=== PATIENT | female | born 1975 | race Caucasian/White ===

== ENCOUNTER 2017-12-13 05:52 | Emergency (ER) | payer MEDICARE ==
[2017-12-13] MEDS ORDERED: ASPIRIN 81 MG TABLET, CHEWABLE PO ONE (07:10)
--- NOTE | 2017-12-13 07:10 | ER Document Report ---
ED General - General Chief Complaint: Shortness Of Breath Stated Complaint: SHORTNESS OF BREATH Time Seen by Provider: 12/13/17 07:09 Mode of Arrival: Ambulatory Information source: Patient Notes: 42 yo female smoker, DM2, hypertensive, hyperlipedemic, with stong FHX CAD, [place] at 50's c/o shortness of breath, fatique, nausea, chest tightness intermittently for a month. Woke her up in middle of the night. No PCP. Never had cardiac evaluation. No hormones. No recent illness, cough or fever. Heartscore is 4 TRAVEL OUTSIDE OF THE [place] IN LAST 30 DAYS: No - Related Data Allergies/Adverse Reactions: codeine Allergy (Verified 12/13/17 06:03) Iodinated Contrast- Oral and IV Dye Allergy (Verified 12/13/17 06:03) Sulfa (Sulfonamide Antibiotics) Allergy (Verified 12/13/17 06:03) Past Medical History - General Information source: Patient - Social History Smoking Status: Current Every Day Smoker Frequency of alcohol use: None Drug Abuse: None Lives with: Spouse/Significant other Family History: CAD Patient has suicidal ideation: No Patient has homicidal ideation: No - Past Medical History Cardiac Medical History: Reports: Hx Hypercholesterolemia, Hx Hypertension Denies: Hx Heart Attack Pulmonary Medical History: Reports: None Neurological Medical History: Reports: Hx Seizures Endocrine Medical History: Reports: Hx Diabetes Mellitus Type 2 Renal/ Medical History: Denies: Hx Peritoneal Dialysis Past Surgical History: Reports: Hx Cholecystectomy, Hx Orthopedic Surgery - R femur repair, discectomy with fusion of C4-C7 Review of Systems - Review of Systems Constitutional: See HPI EENT: No symptoms reported Cardiovascular: See HPI Respiratory: See HPI Gastrointestinal: No symptoms reported Genitourinary: No symptoms reported Female Genitourinary: No symptoms reported Musculoskeletal: No symptoms reported Skin: No symptoms reported Hematologic/Lymphatic: No symptoms reported Neurological/Psychological: No symptoms reported Physical Exam - Vital signs Vitals: Temp Pulse Resp BP Pulse Ox 97.4 F 80 17 130/81 H 100 12/13/17 05:59 12/13/17 05:59 12/13/17 05:59 12/13/17 05:59 12/13/17 05:59 Interpretation: Normal - General General appearance: Appears well, Alert In distress: None - HEENT Head: Normocephalic, Atraumatic Eyes: Normal Conjunctiva: Normal Pupils: PERRL Pharynx: Normal Neck: Supple. No: Lymphadenopathy - Respiratory Respiratory status: No respiratory distress Chest status: Nontender Breath sounds: Normal Chest palpation: Normal - Cardiovascular Rhythm: Regular Heart sounds: Normal auscultation Murmur: No - Abdominal Inspection: Normal Distension: No distension Bowel sounds: Normal Tenderness: Nontender Organomegaly: No organomegaly - Back Back: Normal, Nontender. No: CVA tenderness - Extremities General upper extremity: Normal inspection, Nontender, Normal color, Normal ROM , Normal temperature General lower extremity: Normal inspection, Nontender, Normal color, Normal ROM , Normal temperature, Normal weight bearing. No: Arnie's sign - Neurological Neuro grossly intact: Yes Cognition: Normal Orientation: AAOx4 [place] Coma Scale Eye Opening: Spontaneous [place] Coma Scale Verbal: Oriented [place] Coma Scale Motor: Obeys Commands [place] Coma Scale Total: 15 Speech: Normal Motor strength normal: LUE, RUE, LLE, RLE Sensory: Normal - Psychological Associated symptoms: Normal affect, Normal mood - Skin Skin Temperature: Warm Skin Moisture: Dry Skin Color: Normal Skin irregularity: negative: Rash Course - Re-evaluation Re-evalutation: 12/13/17 09:06 EKG is normal sinus rhythm with no acute change, chest x-ray is negative, patient's heart score is 4. I am concerned about this group of symptoms of fatigue chest pressure shortness of breath dizziness and nausea. Dr. richard hospitalist will admit to observation telemetry bed 12/13/17 10:01 The hospitalist is in the room with the patient and she had talked with her significant other Maddy and has decided that she wants to sign out AGAINST MEDICAL ADVICE. I advised her of her risks of undiagnosed coronary artery disease, sudden . She is alert and oriented and understands the risks she does believe that she needs to have outpatient evaluation but does not want to be admitted for serial enzymes. Told her I would give her discharge instructions with a content curator that she can follow-up with. I will also advise her to keep her glucose under control, stop smoking, take a baby aspirin daily, and also told her that she is free to return to the emergency room for any change in symptoms or if she changes her mind for the workup that we are here with an open door policy for her to return. - Vital Signs Vital signs: Temp Pulse Resp BP Pulse Ox 98.1 F 80 13 116/82 100 12/13/17 10:50 12/13/17 05:59 12/13/17 10:01 12/13/17 10:01 12/13/17 10:01 - Laboratory Result Diagrams: 12/13/17 07:41 12/13/17 07:41 Laboratory results interpreted by me: 12/13/17 12/13/17 07:41 07:41 WBC 11.2 H RBC 5.86 H MCV 72 L MCH 23.1 L RDW 17.9 H Glucose 204 H Creatine Kinase 27 L - EKG Interpretation by Me EKG shows normal: Sinus rhythm Rate: Normal Rhythm: NSR Additional EKG results interpreted by me: 12/13/17 08:57 AT 404. QTC 446, dr jackson evaluated EKG no old to compare Discharge - Discharge Clinical Impression: Chest pain, Palpitations Hypothyroid Qualifiers: Hypothyroidism type: unspecified Qualified Code(s): E03.9 - Hypothyroidism, unspecified Fatigue Qualifiers: Fatigue type: unspecified Qualified Code(s): R53.83 - Other fatigue Condition: Stable Disposition: AGAINST MEDICAL ADVICE Instructions: Aspirin (Cardiac) ([facility]), Chest Pain of Unclear Cause ([facility]), Diabetes ([facility]), Palpitations (Irregular or Rapid Heartrate) ([facility]), Stop Smoking ([facility]) Additional Instructions: Stop smoking Return to the emergency room immediately for worsening of symptoms or if you change your mind about being admitted for serial enzymes and cardiac evaluation One baby aspirin daily 81 mg Keep your diabetes under control with her insulin Referral to internal medicine Referral to content curator please call and schedule an appointment with Dr. Encarnacion Referrals: TIM ENCARNACION MD [ACTIVE STAFF] - Follow up tomorrow RUBA MIRZA MD [ACTIVE STAFF] - Follow up tomorrow
--- NOTE | 2017-12-13 07:32 | RADIOLOGY REPORT (SQ) ---
EXAM DESCRIPTION: XR CHEST 1 VIEW COMPLETED DATE/TME: 12/13/2017 07:10 CLINICAL HISTORY: chest pain COMPARISON: None. FINDINGS: Single frontal view of the chest. Elevation the right hemidiaphragm. The cardiomediastinal silhouette has normal size and contour. No consolidation, pneumothorax, or pleural effusion. Anterior fixation of the cervical spine partially visualized. No acute osseous abnormalities. Leads overlie the chest. Upper abdominal soft tissues are unremarkable. IMPRESSION: 1. No acute pulmonary process identified.
[2017-12-13] MEDS ORDERED: ONDANSETRON 4 MG TAB.RAPDIS PO ONE (08:09)
[2017-12-13 08:10] LABS: ABSOLUTE BASOPHILS # (AUTO) 0.2 10^3/uL (0.0-0.2); ABSOLUTE EOSINOPHILS # (AUTO) 0.4 10^3/uL (0.0-0.6); ABSOLUTE LYMPHOCYTES (AUTO) 3.8 10^3/uL (0.5-4.7); ABSOLUTE MONOCYTES (AUTO) 0.7 10^3/uL (0.1-1.4); ABSOLUTE NEUT (AUTO) 6.1 10^3/uL (1.7-8.2); BASOPHILS % (AUTO) 1.4 % (0-2); HEMATOCRIT 42.1 % (36.0-47.0); HEMOGLOBIN 13.5 g/dL (12.0-15.5); LYMPHOCYTES % (AUTO) 33.9 % (13-45); MEAN CORPUSCULAR HEMOGLOBIN 23.1 pg (27.0-33.4); MEAN CORPUSCULAR HGB CONC 32.1 g/dL (32.0-36.0); MEAN CORPUSCULAR VOLUME 72 fl (80-97); MONOCYTES % (AUTO) 6.4 % (3-13); PLATELET COUNT 312 10^3/uL (150-450); RED BLOOD COUNT 5.86 10^6/uL (3.72-5.28); RED CELL DISTRIBUTION WIDTH 17.9 % (11.5-14.0); SEGMENTED NEUTROPHILS % (AUTO) 54.3 % (42-78); TOTAL CELLS COUNTED % (AUTO) 100 %; WHITE BLOOD COUNT 11.2 10^3/uL (4.0-10.5)
[2017-12-13 08:33] LABS: ALANINE AMINOTRANSFERASE 25 U/L (9-52); ALKALINE PHOSPHATASE 88 U/L (38-126); ANION GAP 11 (5-19); ASPARTATE AMINO TRANSFERASE 19 U/L (14-36); BILIRUBIN,DIRECT 0.3 mg/dL (0.0-0.4); BILIRUBIN,TOTAL 0.3 mg/dL (0.2-1.3); BLOOD UREA NITROGEN 13 mg/dL (7-20); CALCIUM 9.2 mg/dL (8.4-10.2); CARBON DIOXIDE 24 mmol/L (22-30); CHLORIDE 104 mmol/L (98-107); CREATINE KINASE 27 U/L (30-135); GLUCOSE 204 mg/dL (75-110); POTASSIUM 4.6 mmol/L (3.6-5.0); SODIUM 139.4 mmol/L (137-145); TOTAL PROTEIN 7.1 g/dL (6.3-8.2)
[2017-12-13 08:44] LABS: CREATINE KINASE MB 0.23 ng/mL (<4.55)
[2017-12-13 08:45] LABS: TROPONIN I < 0.012 ng/mL
[2017-12-13] MEDS ORDERED: NITROGLYCERIN 0.4 MG/TAB 25 TAB/BOTTLE SL PRN (09:04)
[2017-12-13 11:11] VITALS: BP 116/82
--- NOTE | 2017-12-13 12:44 | EKG REPORT ---
SEVERITY:- NORMAL ECG - SINUS RHYTHM : Confirmed by: Derik Manzano MD 13-Dec-2017 12:44:01
== END 2017-12-13 10:50 | disposition left against medical advice (07) ==
LOC: ER 05:52 → EH 09:20 → UNDOADMOB 09:20 → ER 10:50
DX: R07.89 Other chest pain (principal); R06.02 Shortness of breath; E03.9 Hypothyroidism, unspecified; R00.2 Palpitations; R42 Dizziness and giddiness; R53.83 Other fatigue; R11.0 Nausea; E11.9 Type 2 diabetes mellitus without complications; I10 Essential (primary) hypertension; F17.200 Nicotine dependence, unspecified, uncomplicated; Z88.5 Allergy status to narcotic agent; Z91.040 Latex allergy status; Z88.2 Allergy status to sulfonamides; Z82.49 Family history of ischemic heart disease and other diseases of the circulatory system; Z53.20 Procedure and treatment not carried out because of patient's decision for unspecified reasons
CPT/HCPCS: 93005; 99285; 36415; 82553; 82550; 84443; 85025; 80053; 84484; 71045; 93010; A9270 ×2; S0119

== ENCOUNTER 2019-01-05 12:23 | Emergency (ER) | payer MEDICARE ==
[2019-01-05 12:50] LABS: ABSOLUTE BASOPHILS # (AUTO) 0.1 10^3/uL (0.0-0.2); ABSOLUTE EOSINOPHILS # (AUTO) 0.3 10^3/uL (0.0-0.6); ABSOLUTE LYMPHOCYTES (AUTO) 1.9 10^3/uL (0.5-4.7); ABSOLUTE MONOCYTES (AUTO) 0.6 10^3/uL (0.1-1.4); ABSOLUTE NEUT (AUTO) 5.1 10^3/uL (1.7-8.2); BASOPHILS % (AUTO) 1.9 % (0-2); EOSINOPHILS % (AUTO) 3.4 % (0-6); HEMATOCRIT 32.1 % (36.0-47.0); HEMOGLOBIN 9.7 g/dL (12.0-15.5); LYMPHOCYTES % (AUTO) 24.2 % (13-45); MEAN CORPUSCULAR HEMOGLOBIN 19.9 pg (27.0-33.4); MEAN CORPUSCULAR HGB CONC 30.3 g/dL (32.0-36.0); MEAN CORPUSCULAR VOLUME 66 fl (80-97); MONOCYTES % (AUTO) 7.2 % (3-13); PLATELET COUNT 266 10^3/uL (150-450); RED BLOOD COUNT 4.89 10^6/uL (3.72-5.28); SEGMENTED NEUTROPHILS % (AUTO) 63.3 % (42-78); TOTAL CELLS COUNTED % (AUTO) 100 %
--- NOTE | 2019-01-05 12:50 | ER Document Report ---
ED Medical Screen (RME) - General Chief Complaint: Seizure Stated Complaint: SEIZURES Time Seen by Provider: 01/05/19 12:41 Primary Care Provider: WES WHARTON NP [Primary Care Provider] - Follow up as needed Notes: Patient presents to ED after a seizure. Recently had her Lamictal increased. Currently on Keppra, propanolol, Klonopin. Hx DM, Seizures, nakul's syndrome. Patient denies any suicidal or homicidal ideation. Daughter in law states patient is going through significant stressors and asks for mental health evaluation. Exam: GCS 15. I have greeted and performed a rapid initial assessment of this patient. A comprehensive ED assessment and evaluation of the patient, analysis of test results and completion of medical decision making process will be conducted by an additional ED providers. TRAVEL OUTSIDE OF THE [place] IN LAST 30 DAYS: No - Related Data Allergies/Adverse Reactions: codeine Allergy (Verified 12/13/17 06:03) Iodinated Contrast Media Allergy (Verified 12/13/17 06:03) Sulfa (Sulfonamide Antibiotics) Allergy (Verified 12/13/17 06:03) Past Medical History - Past Medical History Cardiac Medical History: Reports: Hx Hypercholesterolemia, Hx Hypertension Denies: Hx Heart Attack Neurological Medical History: Reports: Hx Seizures Endocrine Medical History: Reports: Hx Diabetes Mellitus Type 2 Renal/ Medical History: Denies: Hx Peritoneal Dialysis Past Surgical History: Reports: Hx Cholecystectomy, Hx Orthopedic Surgery - R femur repair, discectomy with fusion of C4-C7 Physical Exam - Vital signs Vitals: Temp Pulse Resp BP Pulse Ox 98.0 F 87 18 118/69 94 01/05/19 12:45 01/05/19 12:45 01/05/19 12:45 01/05/19 12:45 01/05/19 12:45 Course - Vital Signs Vital signs: Temp Pulse Resp BP Pulse Ox 97.8 F 87 12 131/78 H 99 01/05/19 14:49 01/05/19 12:45 01/05/19 14:49 01/05/19 14:49 01/05/19 14:49 - Laboratory Result Diagrams: 01/05/19 12:38 01/05/19 12:38 Laboratory results interpreted by me: 01/05/19 01/05/19 01/05/19 12:38 12:38 12:38 Hgb 9.7 L Hct 32.1 L MCV 66 L MCH 19.9 L MCHC 30.3 L RDW 18.0 H POC Glucose 125 H Total Protein 6.1 L Doctor's Discharge - Discharge Clinical Impression: Seizure Condition: Stable Disposition: HOME, SELF-CARE Additional Instructions: rest, continue current meds, return if worse Referrals: WES WHARTON DIRECTOR TRANSITION [Primary Care Provider] - Follow up as needed
--- NOTE | 2019-01-05 13:17 | ER Document Report ---
ED Seizure - General Chief Complaint: Seizure Stated Complaint: SEIZURES Time Seen by Provider: 01/05/19 12:41 Primary Care Provider: WES WHARTON NP [Primary Care Provider] - Follow up as needed Mode of Arrival: Medic Information source: Patient - HPI Patient complains to provider of: History of seizures - pt with h/o seizures on keppra and recently started on lamictal with grand mal seizure this am. EMS called and found fsbs to be 60. They administered oral glucose and versed and transported pt. here for further evaluation. On further questioning, pt. denies unusual stressors in her life and denies SI or HI Number of episodes: 2 - there was no fecal or urinary incontinence and no tongue biting - Related Data Allergies/Adverse Reactions: codeine Allergy (Verified 12/13/17 06:03) Iodinated Contrast Media Allergy (Verified 12/13/17 06:03) Sulfa (Sulfonamide Antibiotics) Allergy (Verified 12/13/17 06:03) Past Medical History - General Information source: Patient - Social History Smoking Status: Unknown if Ever Smoked Family History: CAD Patient has suicidal ideation: No Patient has homicidal ideation: No - Past Medical History Cardiac Medical History: Reports: Hx Hypercholesterolemia, Hx Hypertension Denies: Hx Heart Attack Neurological Medical History: Reports: Hx Seizures Endocrine Medical History: Reports: Hx Diabetes Mellitus Type 2 Renal/ Medical History: Denies: Hx Peritoneal Dialysis Past Surgical History: Reports: Hx Cholecystectomy, Hx Orthopedic Surgery - R femur repair, discectomy with fusion of C4-C7 Review of Systems - Review of Systems Constitutional: No symptoms reported EENT: No symptoms reported Cardiovascular: No symptoms reported Respiratory: No symptoms reported Gastrointestinal: No symptoms reported Genitourinary: No symptoms reported Musculoskeletal: No symptoms reported Neurological/Psychological: See HPI, Seizure -: Yes All other systems reviewed and negative Physical Exam - Vital signs Vitals: Temp Pulse Resp BP Pulse Ox 98.0 F 87 18 118/69 94 01/05/19 12:45 01/05/19 12:45 01/05/19 12:45 01/05/19 12:45 01/05/19 12:45 Course - Re-evaluation Re-evalutation: 01/05/19 14:39 pt. is alert and oriented at time of d/c -- she is not post-ictal in any way. She has expressed desire to go home. - Vital Signs Vital signs: Temp Pulse Resp BP Pulse Ox 98.0 F 87 22 H 111/64 97 01/05/19 12:45 01/05/19 12:45 01/05/19 14:01 01/05/19 14:01 01/05/19 14:01 - Laboratory Result Diagrams: 01/05/19 12:38 01/05/19 12:38 Laboratory results interpreted by me: 01/05/19 01/05/19 01/05/19 12:38 12:38 12:38 Hgb 9.7 L Hct 32.1 L MCV 66 L MCH 19.9 L MCHC 30.3 L RDW 18.0 H POC Glucose 125 H Total Protein 6.1 L Discharge - Discharge Clinical Impression: Seizure Condition: Stable Disposition: HOME, SELF-CARE Additional Instructions: rest, continue current meds, return if worse Referrals: WES WHARTON, GLOBAL CONSUMER SECTOR VICE PRESIDENT [Primary Care Provider] - Follow up as needed
[2019-01-05 13:25] LABS: ALBUMIN 3.6 g/dL (3.5-5.0); ALKALINE PHOSPHATASE 47 U/L (38-126); ANION GAP 8 (5-19); ASPARTATE AMINO TRANSFERASE 15 U/L (14-36); BILIRUBIN,DIRECT 0.1 mg/dL (0.0-0.4); BILIRUBIN,TOTAL 0.2 mg/dL (0.2-1.3); BLOOD UREA NITROGEN 12 mg/dL (7-20); CALCIUM 8.9 mg/dL (8.4-10.2); CARBON DIOXIDE 28 mmol/L (22-30); CHLORIDE 103 mmol/L (98-107); GLUCOSE 107 mg/dL (75-110); POTASSIUM 4.3 mmol/L (3.6-5.0); TOTAL PROTEIN 6.1 g/dL (6.3-8.2)
[2019-01-05 13:26] LABS: ALCOHOL < 10 mg/dL (NONE DETECTED)
[2019-01-05 14:00] LABS: APPEARANCE,URINE CLEAR; BILIRUBIN,URINE NEGATIVE (NEGATIVE); COLOR,URINE STRAW; GLUCOSE, URINE NEGATIVE (NEGATIVE); KETONES,URINE NEGATIVE (NEGATIVE); LEUKOCYTE ESTERASE,URINE NEGATIVE (NEGATIVE); NITRITE,URINE NEGATIVE (NEGATIVE); PROTEIN,URINE NEGATIVE (NEGATIVE); URINE SPECIFIC GRAVITY 1.003; UROBILINOGEN,URINE NEGATIVE mg/dL (<2.0)
[2019-01-05 14:20] LABS: URINE AMPHETAMINES SCREEN NEGATIVE; URINE BARBITURATES SCREEN NEGATIVE; URINE BENZODIAZEPINES SCREEN UNCONFIRMED POSITIVE; URINE COCAINE SCREEN NEGATIVE; URINE MARIJUANA (THC) SCREEN NEGATIVE; URINE METHADONE SCREEN NEGATIVE; URINE PHENCYCLIDINE SCREEN NEGATIVE
[2019-01-05 14:53] VITALS: BP 131/78
--- NOTE | 2019-01-06 08:57 | EKG REPORT ---
SEVERITY:- NORMAL ECG - SINUS RHYTHM : Confirmed by: Shanice Encarnacion 06-Jan-2019 08:56:03
== END 2019-01-05 14:57 | disposition home or self-care (01) ==
LOC: ER 12:23
DX: R56.9 Unspecified convulsions (principal); E11.9 Type 2 diabetes mellitus without complications; E78.00 Pure hypercholesterolemia, unspecified; I10 Essential (primary) hypertension; Z88.6 Allergy status to analgesic agent; Z88.2 Allergy status to sulfonamides; Z90.49 Acquired absence of other specified parts of digestive tract
CPT/HCPCS: 36415; 80053; 80307; 81001; 82962; 83735; 85025; 93005; 93010; 99284

== ENCOUNTER 2019-10-03 22:12 | Emergency (ER) | payer MEDICARE ==
[2019-10-03] MEDS ORDERED: LORAZEPAM INJ 2 MG/1 ML VIAL IV ONE ×2 (22:43→22:44)
[2019-10-03 22:53] LABS: ABSOLUTE BASOPHILS # (AUTO) 0.1 10^3/uL (0.0-0.2); ABSOLUTE EOSINOPHILS # (AUTO) 0.5 10^3/uL (0.0-0.6); ABSOLUTE LYMPHOCYTES (AUTO) 2.5 10^3/uL (0.5-4.7); ABSOLUTE MONOCYTES (AUTO) 0.9 10^3/uL (0.1-1.4); ABSOLUTE NEUT (AUTO) 6.1 10^3/uL (1.7-8.2); BASOPHILS % (AUTO) 0.9 % (0-2); EOSINOPHILS % (AUTO) 4.9 % (0-6); HEMATOCRIT 45.7 % (36.0-47.0); HEMOGLOBIN 15.7 g/dL (12.0-15.5); LYMPHOCYTES % (AUTO) 24.5 % (13-45); MEAN CORPUSCULAR HEMOGLOBIN 31.7 pg (27.0-33.4); MEAN CORPUSCULAR HGB CONC 34.4 g/dL (32.0-36.0); MEAN CORPUSCULAR VOLUME 92 fl (80-97); MONOCYTES % (AUTO) 9.1 % (3-13); PLATELET COUNT 260 10^3/uL (150-450); RED BLOOD COUNT 4.95 10^6/uL (3.72-5.28); RED CELL DISTRIBUTION WIDTH 13.8 % (11.5-14.0); SEGMENTED NEUTROPHILS % (AUTO) 60.6 % (42-78); TOTAL CELLS COUNTED % (AUTO) 100 %
[2019-10-03 23:16] LABS: ALBUMIN 4.1 g/dL (3.5-5.0); ALKALINE PHOSPHATASE 62 U/L (38-126); ANION GAP 6 (5-19); ASPARTATE AMINO TRANSFERASE 15 U/L (14-36); BILIRUBIN,TOTAL 0.3 mg/dL (0.2-1.3); BLOOD UREA NITROGEN 6 mg/dL (7-20); CALCIUM 9.5 mg/dL (8.4-10.2); CARBON DIOXIDE 28 mmol/L (22-30); CHLORIDE 102 mmol/L (98-107); GLUCOSE 184 mg/dL (75-110); POTASSIUM 4.5 mmol/L (3.6-5.0); TOTAL PROTEIN 6.9 g/dL (6.3-8.2)
--- NOTE | 2019-10-03 23:16 | RADIOLOGY REPORT (SQ) ---
EXAM DESCRIPTION: CT HEAD WITHOUT IV CONTRAST COMPLETED DATE/TME: 10/03/2019 22:45 CLINICAL HISTORY: 44 years, Female, eval for cause of status epilepticus COMPARISON: None. TECHNIQUE: 196 Images stored on PACS. All CT scanners at this facility use dose modulation, iterative reconstruction, and/or weight based dosing when appropriate to reduce radiation dose to as low as reasonably achievable (ALARA). [facility]: Dose Right [facility]: CareDose [facility]: Dose Right [facility]: Teradose 4D [facility]: [employer] LIMITATIONS: None. FINDINGS: The globes are intact. The paranasal sinuses and mastoid air cells are well aerated. No displaced or depressed skull fracture. No intra or extra-axial hemorrhage. CT is limited for evaluation of acute infarct. No CT evidence for large or territorial acute infarct. No mass or midline shift. Calcifications in the region of the pineal gland. IMPRESSION: No acute intracranial abnormality. If symptoms persist could consider follow-up with dedicated MRI TECHNICAL DOCUMENTATION: Quality ID # [id number]: Final reports with documentation of one or more dose reduction techniques (e.g., Automated exposure control, adjustment of the mA and/or kV according to patient size, use of iterative reconstruction technique) copyright 2011 [employer]- All Rights Reserved
[2019-10-03 23:18] LABS: ALCOHOL < 10 mg/dL (NONE DETECTED)
[2019-10-04 00:02] LABS: APPEARANCE,URINE CLEAR; BILIRUBIN,URINE NEGATIVE (NEGATIVE); COLOR,URINE STRAW; GLUCOSE, URINE 150 mg/dL (NEGATIVE); KETONES,URINE TRACE mg/dL (NEGATIVE); LEUKOCYTE ESTERASE,URINE NEGATIVE (NEGATIVE); NITRITE,URINE NEGATIVE (NEGATIVE); PROTEIN,URINE NEGATIVE (NEGATIVE); URINE SPECIFIC GRAVITY 1.005; UROBILINOGEN,URINE NEGATIVE mg/dL (<2.0)
--- NOTE | 2019-10-04 00:02 | ER Document Report ---
ED General - General Chief Complaint: Seizure Stated Complaint: AMS Time Seen by Provider: 10/03/19 22:42 Primary Care Provider: WES WHARTON NP [Primary Care Provider] - Follow up as needed Mode of Arrival: Medic Information source: Patient TRAVEL OUTSIDE OF THE [place] IN LAST 30 DAYS: No - HPI Onset: Other - Patient has had 6 seizures prior to ER arrival. Patient had another seizure in this ER. Onset/Duration: Sudden, Gradual Quality of pain: Other - Headache Severity: Severe Pain Level: 1 Associated symptoms: None Exacerbated by: Denies Relieved by: Denies Similar symptoms previously: No Recently seen / treated by doctor: No Notes: 44 year old female with a history of Seizures maintained on Keppra 750mg BID and Lamictal 400mg ER Daily, HLD, Hypothyroidism, Migraine Headaches brought to the ER for multiple seizures in the last 12-24 hours. The patient apparently had 6 seizure at home prior ER arrival. EMS found the patient post-ictal on their arrival to her home. On arrival to the ER, the patient was alert and awake but she had another seizure shortly after getting to her ER room. - Related Data Allergies/Adverse Reactions: codeine Allergy (Verified 12/13/17 06:03) Iodinated Contrast Media Allergy (Verified 12/13/17 06:03) Sulfa (Sulfonamide Antibiotics) Allergy (Verified 12/13/17 06:03) Past Medical History - General Information source: Patient - Social History Smoking Status: Current Every Day Smoker Frequency of alcohol use: Occasional Drug Abuse: None Family History: CAD Patient has suicidal ideation: No Patient has homicidal ideation: No - Past Medical History Cardiac Medical History: Reports: Hx Hypercholesterolemia, Hx Hypertension Denies: Hx Heart Attack Neurological Medical History: Reports: Hx Seizures Endocrine Medical History: Reports: Hx Diabetes Mellitus Type 2 Renal/ Medical History: Denies: Hx Peritoneal Dialysis Past Surgical History: Reports: Hx Cholecystectomy, Hx Orthopedic Surgery - R femur repair, discectomy with fusion of C4-C7 Review of Systems - Review of Systems Constitutional: No symptoms reported EENT: No symptoms reported Cardiovascular: No symptoms reported Respiratory: No symptoms reported Gastrointestinal: No symptoms reported Genitourinary: No symptoms reported Female Genitourinary: No symptoms reported Musculoskeletal: No symptoms reported Skin: No symptoms reported Hematologic/Lymphatic: No symptoms reported Neurological/Psychological: Confusion, Seizure - 6 seizures at home and 1 seizure in this ER -: Yes All other systems reviewed and negative Physical Exam - Vital signs Vitals: Temp 98.4 F 10/03/19 22:12 - Notes Notes: GENERAL: Poorly groomed, well-nourished, sitting in a dark room holding her head HEAD: Atraumatic, normocephalic. EYES: Pupils equal round and reactive to light, extraocular movements intact, sclera anicteric, conjunctiva are normal. ENT: External ears normal, nares patent, oropharynx clear without exudates. Moist mucous membranes. NECK: Normal range of motion, supple without lymphadenopathy or JVD. LUNGS: Breath sounds clear to auscultation bilaterally and equal. No wheezes rales or rhonchi. HEART: Regular rate and rhythm without murmurs, rubs or gallops. ABDOMEN: Soft, nontender, normoactive bowel sounds. No guarding, no rebound. No masses appreciated. EXTREMITIES: Normal range of motion, no pitting or edema. No clubbing or cyanosis. NEUROLOGICAL: Cranial nerves II through XII grossly intact. Normal speech, normal gait. PSYCH: Normal mood, normal affect. SKIN: Warm, Dry, normal turgor, no rashes or lesions noted. Course - Re-evaluation Re-evalutation: 10/04/19 01:25 The patient has now had 7 seizures in the last 12-24 hours. The patient's Neurologist is Dr. Boateng at [facility] but that provider has no one inventory control supervisor for me to speak to at this time. I spoke to [facility] since that group is affiliated with [facility] but there apparently no Neurologist inventory control supervisor at [facility] this evening. The hospitalist at [facility] did not feel comfortable admitting this patient since there is no Neurologist on staff currently. Plan to transfer patient. 10/04/19 03:37 I consulted [facility] Neurology and spoke with the attending inventory control supervisor. The attending inventory control supervisor recommended I load the patient with 1500mg of Keppra and increase the patient's daily Keppra dose to 1000mg BID from 750mg BID. The neurologist inventory control supervisor at [facility] did not think the patient needed to be transferred and felt the patient was safe for outpatient follow up with the above mentioned medication changes assuming no more seizures happened after being loaded with IV Keppra in the ER. Plan will be to discharge the patient and have her follow up with her outpatient Neurologist by phone later today to ensure he Neurologist agrees with the medication changes. 10/04/19 03:49 Keppra and Lamictal Levels are pending as they are send out labs. - Vital Signs Vital signs: Temp Pulse Resp BP Pulse Ox 98.4 F 28 H 119/73 94 10/03/19 22:12 10/03/19 23:00 10/03/19 22:20 10/03/19 23:00 - Laboratory Result Diagrams: 10/03/19 22:26 10/03/19 22:26 Laboratory results interpreted by me: 10/03/19 10/03/19 10/03/19 22:26 22:26 22:26 Hgb 15.7 H Sodium 136.1 L BUN 6 L Glucose 184 H POC Glucose 218 H Urine Glucose (UA) Urine Ketones 10/03/19 23:46 Hgb Sodium BUN Glucose POC Glucose Urine Glucose (UA) 150 H Urine Ketones TRACE H - Diagnostic Test Radiology reviewed: Image reviewed, Reports reviewed - EKG Interpretation by Me EKG shows normal: Sinus rhythm, [place], Intervals, QRS Complexes, ST-T Waves Rate: Normal Rhythm: NSR Discharge - Discharge Clinical Impression: Seizures Condition: Stable Disposition: HOME, SELF-CARE Instructions: Seizure, Known Epileptic ([facility]) Additional Instructions: Increase your Keppra from 750mg to 1000mg BID. Call your Neurologist later today and tell her about the number of seizures you had in the last 24 hours. Tell your neurologist that [facility] was called for a possible patient transfer but that [facility] had no Neurologist inventory control supervisor so they could no accept. [facility] was therefore consulted and they recommended your Keppra dose be increased from 750mg BID to 1000mg BID. Make sure your neurologist is ok with this medication change and speak with her about possible further work up. Prescriptions: Levetiracetam [Keppra] 1,000 mg PO BID #30 tablet Referrals: WES WHARTON NP [Primary Care Provider] - Follow up as needed
[2019-10-04 00:13] LABS: URINE AMPHETAMINES SCREEN NEGATIVE; URINE BARBITURATES SCREEN NEGATIVE; URINE BENZODIAZEPINES SCREEN NEGATIVE; URINE COCAINE SCREEN NEGATIVE; URINE MARIJUANA (THC) SCREEN NEGATIVE; URINE METHADONE SCREEN NEGATIVE; URINE PHENCYCLIDINE SCREEN NEGATIVE
[2019-10-04] MEDS ORDERED: LEVETIRACETAM 1500 MG/NACL-ISO 1,500 MG/100 ML RTUPB IV ONE (01:36)
[2019-10-04] MEDS ORDERED: LEVETIRACETAM 1000 MG/NACL-ISO 1,000 MG/100 ML RTUPB IV ONE (02:32)
[2019-10-04] MEDS ORDERED: LEVETIRACETAM 500 MG/NACL-ISO 500 MG/100 ML RTUPB IV ONE (02:32)
[2019-10-04 04:16] VITALS: BP 116/82
--- NOTE | 2019-10-04 10:01 | EKG REPORT ---
SEVERITY:- NORMAL ECG - SINUS RHYTHM : Confirmed by: Shanice Encarnacion 04-Oct-2019 09:59:16
== END 2019-10-04 04:50 | disposition home or self-care (01) ==
LOC: ER 22:12
DX: R56.9 Unspecified convulsions (principal); R41.0 Disorientation, unspecified; R51 Headache; Z79.899 Other long term (current) drug therapy; Z88.8 Allergy status to other drugs, medicaments and biological substances; F17.200 Nicotine dependence, unspecified, uncomplicated; I10 Essential (primary) hypertension; E11.9 Type 2 diabetes mellitus without complications
CPT/HCPCS: 93005; 99285; 96375; 96365; 36415; 80177; 82962; 80307 ×2; 83735; 85025; 80053; 80175; 81001; 70450; 93010; J2060; J1953